=== PATIENT | female | born 1950 | race Caucasian/White ===

== ENCOUNTER 2023-05-22 12:49 | Inpatient (IN) | payer MEDICARE, BC ==
[~2023-05-22] VITALS: Ht 162.6 cm; Wt 99.5 kg
[~2023-05-22 12:49] MED LIST: AMOCLA875 PO
[2023-05-22 13:33] LABS: BASOPHILS ABSOLUTE AUTO 0.03 K/mm3 (0.00-0.23); BASOPHILS PERCENT AUTO 0 % (0-2); EOSINOPHILS ABSOLUTE AUTO 0.01 K/mm3 (0.00-0.68); EOSINOPHILS PERCENT AUTO 0 % (0-6); Hematocrit 41.3 % (33.0-51.0); IMMATURE GRAN ABSOLUTE AUTO 0.04 K/mm3 (0.00-0.10); IMMATURE GRAN PERCENT AUTO 0 % (0-1); LYMPHOCYTES ABSOLUTE AUTO 0.89 K/mm3 (0.84-5.20); LYMPHOCYTES PERCENT AUTO 8 % (21-46); MONOCYTES ABSOLUTE AUTO 1.01 K/mm3 (0.16-1.47); MONOCYTES PERCENT AUTO 9 % (4-13); Mean Corpuscular HGB 31.5 pg (26.0-34.0); Mean Corpuscular HGB Conc 33.9 g/dL (31.5-36.5); Mean Corpuscular Volume 93 fL (80-100); Mean Platelet Volume 10.6 fL (9.1-12.4); NEUTROPHILS ABSOLUTE AUTO 9.68 K/mm3 (1.96-9.15); NEUTROPHILS PERCENT AUTO 83 % (41-73); Platelet Count 198 K/mm3 (150-400); RDW Coefficient Variation 12.2 % (11.7-14.2); RDW Standard Deviation 42.2 fL (35.1-46.3); Red Blood Cell Count 4.45 M/mm3 (3.80-5.20); White Blood Cell Count 11.66 K/mm3 (4.00-11.30)
[2023-05-22 13:56] LABS: Albumin/Globulin Ratio 0.7 (0.8-1.8); Bilirubin, Total 0.4 mg/dL (0.1-1.0); Bun/Creatinine Ratio 22.4 (12.0-20.0); Calcium, Blood 8.9 mg/dL (8.5-10.1); Creatinine, Blood 0.62 mg/dL (0.40-1.00); Globulin, Blood 4.5 g/dL (2.2-4.0); Total Protein, Blood 7.5 g/dL (6.4-8.2)
[2023-05-22 16:47] LABS: Source, Urine Clean Catch
[2023-05-22 17:08] LABS: Appearance, Urine Hazy (Clear); Bilirubin, Urine Neg (Neg); Blood, Urine Neg (Neg); Color, Urine Yellow (P-Yellow); Glucose Qualitative, Urine Neg (Neg); Ketones, Urine 1+ (Neg); Leukocyte Esterase, Urine 1+ (Neg); Nitrite, Urine Neg (Neg); Protein, Urine 3+ (Neg); Urobilinogen, Urine 2+ (Normal)
[2023-05-22 17:26] LABS: Bacteria Many /hpf; Calcium Oxalate Crystals Few /hpf; Mucus Mod (0-Heavy)
[2023-05-22 17:27] LABS: Red Blood Cells, Urine 0-2 /hpf (0-2); Squamous Epithelial Cells Few /hpf (Few)
[2023-05-22] MEDS ORDERED: ALBU90OI INH (19:03)
[2023-05-22] MEDS ORDERED: ALVESCO6.1 G1 INH (19:03)
[2023-05-22] MEDS ORDERED: LORA10ER PO (19:04)
[2023-05-22] MEDS ORDERED: EXEM25 PO (19:04)
[2023-05-22] MEDS ORDERED: LORAZEPAM1 MG PO (19:04)
[2023-05-22 21:33] VITALS: BP 147/81
--- NOTE | 2023-05-22 22:44 | NUR ---
PT ARRIVED TO 3 MEDICAL UNIT AT 1855. PT TRANSFERRED FROM [facility] TO BED INDEPENDENTLY, WITH 1 PERSON ASSIST FOR SAFETY. PT CALM AND COOPERATIVE WITH CARE PROVIDED, A&OX4. VSS, AFEBRILE. PT C/O KAUR, IBUPROFEN GIVEN AND EFFECTIVE. LUNG SOUNDS DIMINISHED. BREATHING REGULAR UNLABORED, NO RETRACTIONS, ACCESSORY MUSCLE USE OR NASAL FLARING NOTED. PT ABLE TO MAKE NEEDS KNOWN. CALL LIGHT WITHIN REACH. WCTM.
--- NOTE | 2023-05-23 02:03 | NUR ---
END OF SHIFT SUMMARY PT REPORTS FEELING BETTER COMPARED TO UPON ARRIVAL TO THE UNIT AFTER TAKING PRN IBUPROFEN AND RECEIVING WARM BLANKETS. PT A&OX4, VSS. PT PLEASANT AND APPRECIATIVE OF CARE PROVIDED. NO DIFFICULTIES WITH BREATHING NOTED, RR EVEN AND UNLABORED ON RA. PT EDUCATION REGARDING PREVENTING INFECTIONS PROVIDED. PT AMBULATES INDEPENDENTLY AND MAKES NEEDS KNOWN APPROPRIATELY. PT APPEARS TO BE SLEEPING COMFORTABLY AT 2330. PT REQUESTED PRN FOR NAUSEA; PHENERGAN GIVEN AT 0200. CALL LIGHT WITHIN REACH, WCTM.
[2023-05-23 03:02] VITALS: BP 145/97
--- NOTE | 2023-05-23 03:10 | NUR ---
AT 0300 PT CALLED TO REQUEST APAP. PT EXPERIENCING CHILLS, REASSESSMENT OF VS: BP: 145/97 PULSE:85 OXYGEN SAT:97% ON RA AND TEMP 99.2. WARM BLANKET GIVEN WELL. PRN PHENERGAN EFFECTIVE. WCTM.
[2023-05-23 04:44] LABS: BASOPHILS ABSOLUTE AUTO 0.02 K/mm3 (0.00-0.23); BASOPHILS PERCENT AUTO 0 % (0-2); EOSINOPHILS ABSOLUTE AUTO 0.01 K/mm3 (0.00-0.68); EOSINOPHILS PERCENT AUTO 0 % (0-6); Hematocrit 36.2 % (33.0-51.0); Hemoglobin 12.4 g/dL (11.5-16.0); IMMATURE GRAN ABSOLUTE AUTO 0.04 K/mm3 (0.00-0.10); IMMATURE GRAN PERCENT AUTO 0 % (0-1); LYMPHOCYTES ABSOLUTE AUTO 0.86 K/mm3 (0.84-5.20); LYMPHOCYTES PERCENT AUTO 8 % (21-46); MONOCYTES ABSOLUTE AUTO 0.88 K/mm3 (0.16-1.47); MONOCYTES PERCENT AUTO 8 % (4-13); Mean Corpuscular HGB 31.6 pg (26.0-34.0); Mean Corpuscular HGB Conc 34.3 g/dL (31.5-36.5); Mean Corpuscular Volume 92 fL (80-100); Mean Platelet Volume 10.4 fL (9.1-12.4); NEUTROPHILS ABSOLUTE AUTO 8.63 K/mm3 (1.96-9.15); NEUTROPHILS PERCENT AUTO 83 % (41-73); Platelet Count 192 K/mm3 (150-400); RDW Coefficient Variation 12.3 % (11.7-14.2); RDW Standard Deviation 41.9 fL (35.1-46.3); Red Blood Cell Count 3.93 M/mm3 (3.80-5.20); White Blood Cell Count 10.44 K/mm3 (4.00-11.30)
[2023-05-23 05:12] LABS: Albumin, Blood 2.4 g/dL (3.4-5.0); Albumin/Globulin Ratio 0.6 (0.8-1.8); Bilirubin, Total 0.3 mg/dL (0.1-1.0); Bun/Creatinine Ratio 12.7 (12.0-20.0); Calcium, Blood 8.1 mg/dL (8.5-10.1); Creatinine, Blood 0.71 mg/dL (0.40-1.00); Globulin, Blood 4.2 g/dL (2.2-4.0); Potassium, Blood 3.7 mmol/L (3.5-5.5); Total Protein, Blood 6.6 g/dL (6.4-8.2)
--- NOTE | 2023-05-23 06:02 | NUR ---
PATIENT EDUCATION RELATED TO FIRE SAFETY PATIENT EDUCATED ON POSSIBLE SOURCES OF IGNITION AND NO SMOKING POLICY.
--- NOTE | 2023-05-23 07:30 | NUR ---
ASSUMED CARE: PT AMBULATORY IN ROOM, ON ROOM AIR, NO TELE. DENIES NEEDS OR CONCERNS. CALL LIGHT IN REACH.
[2023-05-23 08:03] VITALS: BP 146/79
--- NOTE | 2023-05-23 10:10 | NUR ---
PT WAS UNCOMFORTABLE WITH FEVER AND NAUSEA AND DECLINED ABX UNTIL FEVER WAS CONTROLLED. THIS RN ASKED DR FOR DIFFERENT NAUSEA MEDICATION BECAUSE PT'S IV WAS BECOMING TENDER. WHEN ATTEMPTING TO FLUSH, SITE WAS EXTREMELY TENDER WITH SLOW FLUSHING. IV REMOVED. DISCUSSED WITH PT WHO WOULD PREFER PG VS PERIPHERAL IN HAND. STATES SHE ONLY HAS ONE ARM TO USE DUE TO CANCER HISTORY. CALL TO CHIEF I DISPATCHER FOR PG PLACEMENT. PT STATED NAUSEA WAS TOLERABLE ENOUGH RIGHT NOW THAT SHE COULD WAIT FOR MEDICATION FOR NAUSEA
--- NOTE | 2023-05-23 13:38 | NUR ---
PT CALLED, C/O ARM PAIN WITH ABX. CHECKED BOTH IV SITES AND FUNCTIONING WELL. PT DOUBLE CHECKED ABX AND FOUND THAT AZITHROMYCIN WAS BEING ADMINISTERED AND WAS LISTED A MILD ALLERGY. CALL TO DR HANSEN WHO DISCONTINUED AND RESTARTED VIBRAMYCIN. PT AGREEABLE TO THIS PLAN
[2023-05-23 15:42] VITALS: BP 114/71
--- NOTE | 2023-05-23 18:03 | NUR ---
SHIFT SUMMARY: PT HAS BEEN MEDICATED T/O DAY WITH TYLENOL FOR FEVERS AND CHILLS. MEDICATED WITH ABX PER ORDERS AND PT HAS BEEN INDEPENDENT IN ROOM ON RA. LIKELY TO DC TOMORROW. NO ACUTE NEEDS OR CONCERNS AT THIS TIME.
--- NOTE | 2023-05-23 18:10 | NUR ---
IGNITION RISK: NO EVIDENCE OF LIGHTERS/MATCHES/ CIGARRETTES AT BEDSIDE T/O SHIFT FROM PT OR FAMILY
[2023-05-23 19:15] VITALS: BP 141/86
[2023-05-24 03:13] VITALS: BP 136/87
--- NOTE | 2023-05-24 04:28 | NUR ---
ICE SKATING TEACHER SUMMARY NO ACUTE EVENTS OVERNIGHT. A&OX4. PATIENT EFFECTIVELY COMMUNICATES NEEDS. VSS. RR EVEN AND UNLABORED ON RA. PAIN ASSESSED AND MEDICATED PER EMAR. PATIENT IS TOLERATING ABO THERAPY. NO REPORTS OF NAUSEA OR CHILLS THIS SHIFT. BED LOW AND LOCKED. CALL LIGHT WITHIN REACH. THIS RN WILL CONTINUE TO MONITOR. PATIENT EDUCATED ON POSSIBLE IGNITION SOURCES AND NO SMOKING POLICY.
--- NOTE | 2023-05-24 07:16 | NUR ---
ASSUMED CARE: PT RESTING QUIETLY IN BED AT THIS TIME. ON RA, PARTICIPATING DURING BEDSIDE REPORT. DENIES NEEDS OR CONCERNS.
[2023-05-24 07:18] VITALS: BP 144/90
[2023-05-24] MEDS ORDERED: AMOCLA875 PO (10:24)
[2023-05-24] MEDS ORDERED: LACT PO (10:25)
--- NOTE | 2023-05-24 11:32 | NUR ---
DISCHARGE: PT GIVEN INSTRUCTIONS REGARDING MEDICATIONS AND TIMING OF ABX VS PROBIOTICS AND FOLLOW UP APPOINTMENTS IV'S DC'D WNL. PT AMBULATORY UPON DISCHARGE. DENIED NEEDS OR CONCERNS.
== END 2023-05-24 11:11 | disposition home or self-care (01) | DRG 871 ==
LOC: ER 12:49 → MEDS 18:37
PROVIDERS: Student in an Organized Health Care Education/Training Program; ADMIT Internal Medicine
DX: A41.9 Sepsis, unspecified organism (principal); J18.9 Pneumonia, unspecified organism; E87.1 Hypo-osmolality and hyponatremia; C79.9 Secondary malignant neoplasm of unspecified site; C50.919 Malignant neoplasm of unspecified site of unspecified female breast; R19.7 Diarrhea, unspecified; E88.09 Other disorders of plasma-protein metabolism, not elsewhere classified; Z88.2 Allergy status to sulfonamides; Z88.5 Allergy status to narcotic agent; Z88.8 Allergy status to other drugs, medicaments and biological substances; Z79.1 Long term (current) use of non-steroidal anti-inflammatories (NSAID); Z85.118 Personal history of other malignant neoplasm of bronchus and lung; Z20.822 Contact with and (suspected) exposure to COVID-19; Z90.2 Acquired absence of lung [part of]; Z88.1 Allergy status to other antibiotic agents
CPT/HCPCS: 36415; 71046; 80053; 81001; 83605; 84145; 85025; 87086; 93005; 93010; 96365; 96367; 96375; 99285-25; A9270; J0456; J0696; J1650; J1885; J2405; J7030; J7050

== ENCOUNTER 2023-08-22 17:53 | Inpatient (IN) | payer MEDICARE, BC ==
[~2023-08-22] VITALS: Ht 162.6 cm; Wt 94.9 kg
[~2023-08-22 17:53] MED LIST changes: +ALBU90OI INH; +ALVESCO6.1 G1 INH; +EXEM25 PO; +LACT PO; +LORAZEPAM1 MG PO
[2023-08-22 19:04] LABS: BASOPHILS ABSOLUTE AUTO 0.03 K/mm3 (0.00-0.23); BASOPHILS PERCENT AUTO 0 % (0-2); EOSINOPHILS ABSOLUTE AUTO 0.02 K/mm3 (0.00-0.68); EOSINOPHILS PERCENT AUTO 0 % (0-6); Hematocrit 42.6 % (33.0-51.0); Hemoglobin 14.6 g/dL (11.5-16.0); IMMATURE GRAN ABSOLUTE AUTO 0.04 K/mm3 (0.00-0.10); IMMATURE GRAN PERCENT AUTO 0 % (0-1); LYMPHOCYTES ABSOLUTE AUTO 1.15 K/mm3 (0.84-5.20); LYMPHOCYTES PERCENT AUTO 8 % (21-46); MONOCYTES ABSOLUTE AUTO 0.74 K/mm3 (0.16-1.47); MONOCYTES PERCENT AUTO 5 % (4-13); Mean Corpuscular HGB Conc 34.3 g/dL (31.5-36.5); Mean Corpuscular Volume 88 fL (80-100); Mean Platelet Volume 10.6 fL (9.1-12.4); NEUTROPHILS ABSOLUTE AUTO 11.67 K/mm3 (1.96-9.15); NEUTROPHILS PERCENT AUTO 86 % (41-73); Platelet Count 265 K/mm3 (150-400); RDW Coefficient Variation 13.4 % (11.7-14.2); RDW Standard Deviation 43.1 fL (35.1-46.3); Red Blood Cell Count 4.87 M/mm3 (3.80-5.20); White Blood Cell Count 13.65 K/mm3 (4.00-11.30)
[2023-08-22 19:06] LABS: Source, Urine Clean Catch
[2023-08-22 19:10] LABS: Appearance, Urine Hazy (Clear); Bilirubin, Urine Neg (Neg); Blood, Urine 1+ (Neg); Color, Urine Yellow (P-Yellow); Glucose Qualitative, Urine Neg (Neg); Ketones, Urine 3+ (Neg); Leukocyte Esterase, Urine 2+ (Neg); Nitrite, Urine Neg (Neg); Protein, Urine 4+ (Neg); Specific Gravity, Urine 1.025 (1.003-1.022); Urobilinogen, Urine NORM (Normal)
[2023-08-22 19:11] LABS: Albumin, Blood 3.7 g/dL (3.4-5.0); Albumin/Globulin Ratio 0.8 (0.8-1.8); Bilirubin, Total 0.5 mg/dL (0.1-1.0); Calcium, Blood 9.1 mg/dL (8.5-10.1); Creatinine, Blood 0.8 mg/dL (0.40-1.00); Globulin, Blood 4.5 g/dL (2.2-4.0); Potassium, Blood 3.9 mmol/L (3.5-5.5); Total Protein, Blood 8.2 g/dL (6.4-8.2)
[2023-08-22 19:39] LABS: Amorphous Heavy (0-Heavy); Bacteria Few /hpf; Squamous Epithelial Cells Few /hpf (Few)
[2023-08-22 22:50] LABS: Anti-Xa UFH, PHA Monitoring <0.10 IU/mL; International Normalized Ratio 0.99; Prothrombin Time Results 10.4 Sec (9.7-11.5)
[2023-08-23 00:51] VITALS: BP 156/104
[2023-08-23 03:06] VITALS: BP 165/88
--- NOTE | 2023-08-23 05:45 | NUR ---
SHIFT SUMMARY: PT IS ALERT AND ORIENTED. PT IS CALM AND COOPERATIVE WITH CARE. PT CALLS APPROPRIATELY. PT IS INDEPENDENT IN THE ROOM. PT CAME UP FROM ER WITH HEPARIN RUNNING, RATE VERIFIED, NO RATE CHANGES SINCE ADMIT. FLUIDS RUNNING 75 ML/HR X 1 LITER ORDERED. PT SLEPT MUCH OF THE NIGHT. PT DENIES NAUSEA, VOMITING, AND SOB. NO ACUTE CHANGES OR COMPLICATIONS THIS SHIFT. BED IN LOW POSITION, CALL LIGHT WITHIN REACH. WILL CONTINUE TO MONITOR AND REPORT TO DAY NURSE.
[2023-08-23 06:05] LABS: BASOPHILS ABSOLUTE AUTO 0.03 K/mm3 (0.00-0.23); BASOPHILS PERCENT AUTO 0 % (0-2); EOSINOPHILS ABSOLUTE AUTO 0.01 K/mm3 (0.00-0.68); EOSINOPHILS PERCENT AUTO 0 % (0-6); Hematocrit 37.8 % (33.0-51.0); Hemoglobin 12.5 g/dL (11.5-16.0); IMMATURE GRAN ABSOLUTE AUTO 0.05 K/mm3 (0.00-0.10); IMMATURE GRAN PERCENT AUTO 0 % (0-1); LYMPHOCYTES ABSOLUTE AUTO 1.57 K/mm3 (0.84-5.20); LYMPHOCYTES PERCENT AUTO 12 % (21-46); MONOCYTES PERCENT AUTO 7 % (4-13); Mean Corpuscular HGB 29.3 pg (26.0-34.0); Mean Corpuscular HGB Conc 33.1 g/dL (31.5-36.5); Mean Corpuscular Volume 89 fL (80-100); Mean Platelet Volume 10.3 fL (9.1-12.4); NEUTROPHILS ABSOLUTE AUTO 10.42 K/mm3 (1.96-9.15); NEUTROPHILS PERCENT AUTO 80 % (41-73); Platelet Count 220 K/mm3 (150-400); RDW Coefficient Variation 13.5 % (11.7-14.2); RDW Standard Deviation 43.9 fL (35.1-46.3); Red Blood Cell Count 4.27 M/mm3 (3.80-5.20); White Blood Cell Count 12.98 K/mm3 (4.00-11.30)
[2023-08-23 06:45] LABS: Albumin/Globulin Ratio 0.8 (0.8-1.8); Bilirubin, Total 0.6 mg/dL (0.1-1.0); Bun/Creatinine Ratio 13.3 (12.0-20.0); Calcium, Blood 8.1 mg/dL (8.5-10.1); Creatinine, Blood 0.83 mg/dL (0.40-1.00); Globulin, Blood 3.9 g/dL (2.2-4.0); Total Protein, Blood 6.9 g/dL (6.4-8.2)
[2023-08-23 07:21] VITALS: BP 153/94
[2023-08-23] MEDS ORDERED: LORA10ER PO (16:25)
--- NOTE | 2023-08-23 16:42 | NUR ---
SHIFT SUMMARY: PT A&O X4. PT PLEASANT AND COOPERATIVE WITH ALL CARE. HEPARIN CONTINUE TO INFUSE IN LHA @18U/KG/HR. PT SENT DOWN FOR PE STUDY THIS AM. RESULTS IN CHART. PT C/O 04/14 PAIN IN BACK THIS SHIFT. MAIN MEDICATION PROVIDED PER EMAR. CONSENT FAXED TO [facility] TO SEND INPATIENT UPDATES, LAB RESULTS, AND IMAGES TO DR. REMY, PT ONCOLOGIST, IN [place]. ON TELE RUNNING SINUS RHYTHM. NO OTHER NEEDS AT THIS TIME. CALL LIGHT IN REACH. BED IN LOWEST POSITION.
[2023-08-23 17:07] VITALS: BP 158/101
[2023-08-23 20:31] VITALS: BP 172/100
[2023-08-23 21:34] LABS: Bun/Creatinine Ratio 10.6 (12.0-20.0); Calcium, Blood 8.5 mg/dL (8.5-10.1); Creatinine, Blood 0.85 mg/dL (0.40-1.00); Potassium, Blood 3.9 mmol/L (3.5-5.5)
[2023-08-23 23:02] VITALS: BP 152/89
--- NOTE | 2023-08-23 23:56 | NUR ---
SBP 172/100. IV APRESOLINE 10 MG GIVEN FOR SBP >160. SBP 152/89 ON RECHECK. PATIENT REPORTED NAUSEOUS AFTER IV APRESOLINE 45 MINUTES LATER. IV ZOFRAN 4 MG GIVEN PER EMAR WITH GOOD EFFECT. WCTM
[2023-08-24 02:38] VITALS: BP 163/96
--- NOTE | 2023-08-24 04:08 | NUR ---
SHIFT SUMMARY PATIENT HYPERTENSIVE AND IV APRESOLINE 10 MG GIVEN PER EMAR (SEE NOTE). PATIENT REPORTED APRESOLINE MAY HAVE MADE HER NAUSEOUS. IV ZOFRAN GIVEN PER EMAR. REPORTED HEAD CONGESTION AND HOSPITALIST DR MAGAÑA ORDERED SUDAFED 30 MG X ONE. AXOX 4 AND INDEPENDENT IN ROOM. PIV REMAINS INTACT. HEPARIN INFUSING @ 25.2 mL/HR MANAGED BY PHARMACY. STEAM FITTER SUPERVISOR REPORTS NSR 78. REPORTED BACK PAIN AND IV FENTANYL 25 MCG GIVEN WITH GOOD EFFECT. LOW GRADE TEMP. ANXIOUS T/O SHIFT. CALL LIGHT IN REACH. BED IN LOWEST POSITION. WILL CONTINUE TO MONITOR UNTIL DAY SHIFT NURSE ASSUMES CARE.
[2023-08-24 06:14] LABS: BASOPHILS ABSOLUTE AUTO 0.03 K/mm3 (0.00-0.23); BASOPHILS PERCENT AUTO 0 % (0-2); EOSINOPHILS ABSOLUTE AUTO 0.01 K/mm3 (0.00-0.68); EOSINOPHILS PERCENT AUTO 0 % (0-6); Hematocrit 37.5 % (33.0-51.0); Hemoglobin 12.3 g/dL (11.5-16.0); IMMATURE GRAN ABSOLUTE AUTO 0.08 K/mm3 (0.00-0.10); IMMATURE GRAN PERCENT AUTO 1 % (0-1); LYMPHOCYTES ABSOLUTE AUTO 1.54 K/mm3 (0.84-5.20); LYMPHOCYTES PERCENT AUTO 12 % (21-46); MONOCYTES ABSOLUTE AUTO 0.77 K/mm3 (0.16-1.47); MONOCYTES PERCENT AUTO 6 % (4-13); Mean Corpuscular HGB 29.3 pg (26.0-34.0); Mean Corpuscular HGB Conc 32.8 g/dL (31.5-36.5); Mean Corpuscular Volume 89 fL (80-100); Mean Platelet Volume 10.7 fL (9.1-12.4); NEUTROPHILS ABSOLUTE AUTO 10.81 K/mm3 (1.96-9.15); NEUTROPHILS PERCENT AUTO 82 % (41-73); Platelet Count 226 K/mm3 (150-400); RDW Coefficient Variation 13.7 % (11.7-14.2); RDW Standard Deviation 44.6 fL (35.1-46.3); White Blood Cell Count 13.24 K/mm3 (4.00-11.30)
[2023-08-24 07:36] VITALS: BP 153/101
[2023-08-24 09:12] LABS: Bun/Creatinine Ratio 12.5 (12.0-20.0); Calcium, Blood 8.3 mg/dL (8.5-10.1); Creatinine, Blood 0.72 mg/dL (0.40-1.00)
[2023-08-24 15:32] VITALS: BP 147/98
--- NOTE | 2023-08-24 16:34 | NUR ---
SHIFT SUMMARY: PT A&O X4. PT PLEASANT AND COOPERATIVE WITH CARE. UPON ARRIVAL THIS SHIFT, PT STATED SHE WAS FEELING NAUSEOUS. PRN IV ZOFRAN PROVIDED. PT STATED NAUSEA RESOLVED AFTER ADMIN. INCREASED BLOOD PRESSURE THIS AM. PT STARTED ON BP MEDICATIONS. PT STATES IV HYDRALAZINE MADE HER NAUSEOUS AND REQUESTS TO NOT HAVE AGAIN. PT HAVING 3/10 PAIN IN BACK THIS AM. HOSPITALIST PLACED ORDER FOR PRN TYLENOL. HEPARIN D/C AND STARTED ON ELIQUIS. NO BM FOR SEVERAL DAYS ACCORDING TO PT. ORDERS FOR BOWEL MEDS STARTING THIS EVENING. PT HAS BEEN ABLE TO WALK HALLS AND STATES SHE IS FEELING MUCH BETTER. CALL LIGHT IN REACH.
[2023-08-24 19:39] VITALS: BP 144/95
[2023-08-24 23:24] VITALS: BP 143/76
[2023-08-25 04:04] VITALS: BP 143/81
--- NOTE | 2023-08-25 05:28 | NUR ---
SUMMARY: PT A/OX4, CALLS APPROPRIATELY TO SPECIFY NEEDS AND IS PLEASANT AND COOPERATIVE W/CARE. SHE'S UP INDEPENDENTLY IN ROOM AND AWARE OF LIMITATIONS. SHE C/O KAUR AND BACK PAIN W/TYLENOL AND FENTANYL 25MCG IV PRN RECEIVED FOR GOOD EFFECT. SHE REMAINS NSR AT 60'S BPM ON TELE W/SBP 140'S SINCE COMMENCING LISINOPRIL. PT TAKING ELOQUIS FOR BILATERAL PE'S BUT SHE'S BEEN ASYMPTOMATIC OF RESP DISTRESS T/O NOCTE. NO ACUTE CHANGES, VSS/AFEBRILE. WCTM AND REPORT TO DAY RN.
[2023-08-25 07:15] VITALS: BP 127/74
--- NOTE | 2023-08-25 09:24 | NUR ---
ASSUMED CARE OF PT. PT A&O X4 AND INDEPENDENT IN ROOM. ASSISTED PT IN PREPARING FOR SPONGE BATH, PT INDEPENDENTLY PERFORMED SPONGE BATH. VSS. NO ACUTE EVENTS AT THIS TIME.
[2023-08-25] MEDS ORDERED: Prinivil10 MG PO (12:05)
[2023-08-25] MEDS ORDERED: ELIQUIS5 M2 PO (12:06)
--- NOTE | 2023-08-25 12:50 | NUR ---
SHIFT SUMMARY PT VSS STABLE. IN ROOM TO DISCUSS DISCHARGE INFORMATION. ALL QUESTIONS AND CONCERNS ADDRESSED. PT DISCHARGE EDUCATION PROVIDED, R FOREARM IV REMOVED AND SITE WNL. PT DISCHARGED HOME VIA W/C TO PERSONAL VEHICLE DRIVEN BY FAMILY MEMBER. ALL BELONGINGS OUT OF ROOM AND WITH PATIENT. NO ACUTE EVENTS DURING MY SHIFT.
== END 2023-08-25 12:47 | disposition home or self-care (01) | DRG 698 ==
LOC: ER 17:53 → MEDS 17:54 → ENPENDDIS 08-25 11:02 → MEDS 08-25 12:47
PROVIDERS: Emergency Medicine; Internal Medicine; Student in an Organized Health Care Education/Training Program; ADMIT Internal Medicine
DX: N28.0 Ischemia and infarction of kidney (principal); I26.99 Other pulmonary embolism without acute cor pulmonale; N12 Tubulo-interstitial nephritis, not specified as acute or chronic; C79.51 Secondary malignant neoplasm of bone; I10 Essential (primary) hypertension; C50.919 Malignant neoplasm of unspecified site of unspecified female breast; E86.0 Dehydration; I27.21 Secondary pulmonary arterial hypertension; K59.00 Constipation, unspecified; Z88.1 Allergy status to other antibiotic agents; Z88.8 Allergy status to other drugs, medicaments and biological substances; Z88.2 Allergy status to sulfonamides; Z88.5 Allergy status to narcotic agent; Z79.899 Other long term (current) drug therapy; Z79.51 Long term (current) use of inhaled steroids; Z79.2 Long term (current) use of antibiotics; Z85.118 Personal history of other malignant neoplasm of bronchus and lung
CPT/HCPCS: 36415; 71260; 74177; 80048; 80053; 81001; 83605; 83880; 85014; 85018; 85025; 85049; 85520; 85610; 85730; 87040; 87086; 93306; 94640; 94664; 94760; 96361; 96365-59; 96366; 96368; 96375; 96376; 99285-25; A9270; G0378; J0360; J0696; J1644; J2270; J2405; J2765; J3010; J7030; Q9967

== ENCOUNTER 2024-11-21 10:44 | Emergency (ER) | payer OTHER, MEDICARE, BC ==
[~2024-11-21] VITALS: Ht 162.6 cm; Wt 98.9 kg
[~2024-11-21 10:44] MED LIST changes: +ELIQUIS5 M2 PO; +LORA10ER PO; +Prinivil10 MG PO
[2024-11-21 11:29] VITALS: BP 150/107
== END 2024-11-21 12:58 | disposition home or self-care (01) ==
LOC: ER 10:44
DX: S63.501A Unspecified sprain of right wrist, initial encounter (principal); S83.91XA Sprain of unspecified site of right knee, initial encounter; W01.0XXA Fall on same level from slipping, tripping and stumbling without subsequent striking against object, initial encounter; I10 Essential (primary) hypertension; Z88.5 Allergy status to narcotic agent; Z88.1 Allergy status to other antibiotic agents; Z88.8 Allergy status to other drugs, medicaments and biological substances; Z88.2 Allergy status to sulfonamides; Z79.01 Long term (current) use of anticoagulants; Z79.899 Other long term (current) drug therapy
CPT/HCPCS: 73110; 73562-RT; 99283-25